=== PATIENT | female | born 1945 | race Caucasian/White ===

== ENCOUNTER 2018-06-04 12:17 | Inpatient (IN) | payer OTHER ==
[~2018-06-04] VITALS: Ht 162.6 cm; Wt 101.6 kg
[~2018-06-04 12:17] MED LIST: ADVAIR HFA115 MCG/21 INH; AMBIEN 5 MG TABL5 M1 PO; ASPIR 8181 M1 PO; ATORVASTATIN CA40 MG PO; BACTRIM DS TAB1 EACH PO; CEFTIN 250 MG250 MG PO; CHOLESTEROL MED PO; CYMBALTA60 MG PO; HUMALOG100 UNIT/1 SUBQ; JARDIANCE10 MG PO; KEFLEX500 MG PO; KETOCONAZOLE120 ML TOP; KETOCONAZOLE60 GM TOP; LEVEMIR SUBQ; LISINOPRIL10 MG PO; LOVASTAT40 PO; METFORMIN HCL500 MG PO; MINOCIN100 MG PO; POTASSIUM20 PO; PROAIR HFA8.5 GM INH; SYNTHROID150 MCG PO; TRAZODONE HCL50 MG PO; TRULICITY0.75 MG/0. SQ; UNICOMPLEX M TA1 TA1 PO; VICTOZA0.6 MG/0.1 SUBQ; ZESTORETIC 20-1 EAC3 PO
[2018-06-04 12:26] VITALS: BP 127/73
[2018-06-04 13:04] LABS: ABSOLUTE BASOPHILS 0.1 thou/uL (0.0-0.2); ABSOLUTE EOSINOPHILS 0.1 thou/uL (0.0-0.7); ABSOLUTE LYMPHOCYTES 1.5 thou/uL (0.8-5.3); ABSOLUTE MONOCYTES 0.5 thou/uL (0.0-1.2); ABSOLUTE NEUTROPHILS 5.6 thou/uL (1.6-8.1); BASOPHILS 1.3 %; EOSINOPHILS 1.5 %; HEMATOCRIT 45.7 % (37.0-47.0); HEMOGLOBIN 14.8 gm/dL (12.0-15.0); LYMPHOCYTES 19.6 %; MCHC 32.4 g/dL (28.0-37.0); MCV 86.6 fL (80.0-100.0); MONOCYTES 6.6 %; MPV 8.5 fl. (7.2-11.1); NUCLEATED RBCS 0 /100WBC; PLATELET COUNT* 239 thou/uL (150-400); RBC 5.28 mil/uL (4.20-5.00); WBC 7.9 thou/uL (4.0-11.0)
[2018-06-04 13:08] LABS: BE -0.3 mmol/L (-2 to +3); HCO3 27.3 mmol/L (22.0-26.0); PO2 78.6 mmHg (75.0-100.0); pH 7.303 (7.340-7.450)
[2018-06-04 13:09] LABS: PCO2 56.4 mmHg (35.0-45.0)
[2018-06-04 13:13] LABS: APTT 22.4 Seconds (25.0-31.3); PROTIME 10.2 Seconds (9.20-11.50)
[2018-06-04 13:17] LABS: ANION GAP 4 mmol/L (7-16); BUN 15 mg/dL (7-18); CALCIUM 8.4 mg/dL (8.5-10.1); CHLORIDE 105 mmol/L (98-107); CO2 32 mmol/L (21-32); CREATININE 0.8 mg/dL (0.6-1.3); GLUCOSE 389 mg/dL (70-99); POTASSIUM 3.7 mmol/L (3.5-5.1); SODIUM 141 mmol/L (136-145)
[2018-06-04 13:24] LABS: ALBUMIN 3.4 g/dL (3.4-5.0); ALKALINE PHOSPHATASE 94 U/L (46-116); NT-PRO BRAIN NAT PEPTIDE 130 pg/mL (<300); SGOT 27 U/L (15-37); SGPT 43 U/L (30-65); TOTAL BILIRUBIN 0.4 mg/dL (<0.1-1.0); TOTAL PROTEIN 7.1 g/dL (6.4-8.2); TROPONIN-I LEVEL <0.06 ng/mL (<0.06)
[2018-06-04] MEDS ORDERED: TRULICITY0.75 MG/0. SUBQ (14:08)
[2018-06-04] MEDS ORDERED: ALLEGRA ALLERG180 MG PO (14:08)
[2018-06-04 16:23] VITALS: BP 204/84
--- NOTE | 2018-06-04 16:26 | EKG ---
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1945 Requested By: Christiano Lowe Order Number: [id number] MD: Jak Pierson Measurements Intervals [place] Rate: 115 P: 72 WI: 151 QRS: 76 QRSD: 101 T: 3 QT: 353 QTc: 489 Interpretive Statements Sinus tachycardia Probable left atrial enlargement Anterior infarct, old, possible Baseline wander in lead(s) V1,V2 No previous ECG available for comparison Electronically Signed On 06-04-2018 16:26:04 PHYSICAL SCIENCES INSTRUCTOR by Jak Pierson [email or web address] <ELECTRONICALLY SIGNED> By: Jak Pierson MD, FACC 06/04/18 1626 [id number] Jak Pierson MD, FAC /EPI
[2018-06-04 17:00] VITALS: BP 147/110
[2018-06-04 18:12] LABS: CHOLESTEROL 226 mg/dL (<200); HDL CHOLESTEROL 39 mg/dL (>40); LDL CHOLESTEROL 156 mg/dL (<100); TC:HDL 5.8 Ratio (Not establshd); TRIGLYCERIDE 159 mg/dL (<150); VLDL 32 mg/dL (<40)
[2018-06-04 18:13] LABS: SERUM ASSESSMENT Clear
--- NOTE | 2018-06-04 18:50 | NUR ---
NESTOR RESTIN GIN BED. UTILIZING 4L PER NASAL CANULA FOR SUPPLEMENTAL OXYGEN. LUNG SOUNDS DIMINISHED AND WHEEZING. AOX4 AND CALM. SMALL FUNGAL RASH BEHIND RIGHT EAR. HOURLY ROUNDING COMPLETD FOR PATINET SAFETY
[2018-06-04 20:00] VITALS: BP 121/61
[2018-06-04 23:43] VITALS: BP 116/59
--- NOTE | 2018-06-05 03:12 | NUR ---
PT ALERT ORIENTED X 4. UP TO BSC WITH ONE PERSON ASSIST. OVER NOC OX IN PROGRESS. PT STATED SHE FELT MUCH BETTER THAN BEFORE SHE CAME IN. O2 AT [address] LIT[address] NC[address] TELEMETRY SHOWS ST. DENIES PAIN. WELL CONTINUE TO MONITOR.
[2018-06-05 05:30] VITALS: BP 137/57
[2018-06-05 05:47] LABS: BE 1.9 mmol/L (-2 to +3); HCO3 33.1 mmol/L (22.0-26.0); PO2 85.5 mmHg (75.0-100.0)
[2018-06-05 05:56] LABS: pH 7.201 (7.340-7.450)
[2018-06-05 05:57] LABS: PCO2 86.4 mmHg (35.0-45.0)
--- NOTE | 2018-06-05 06:21 | NUR ---
PTS ABGS AFTER OVERNIGHT OX CRITICAL. DR QUIROZ NOTIFIED. BIPAP ORDERED. PT REFUSED. PT ALERT AND ORIENTED. DR QUIROZ NOTIFIED OF PT REFUSAL TO WEAR BIPAP.
--- NOTE | 2018-06-05 07:20 | NUR ---
CHANGE OF SHIFT BEDSIDE REPORT GIVEN PATIENT SEEN AT BEDSIDE, IN BED RESTING ASSUMED PATIENT CARE
[2018-06-05 08:00] VITALS: BP 115/66
[2018-06-05 11:19] VITALS: BP 122/57
--- NOTE | 2018-06-05 11:35 | NUR ---
ELLIOTT ECHEVARRIA REQUESTING P.T. EVALUATION TO BE ON HOLD FOR TODAY 06/05/18 D/T PT. BEING ON BIPAP. WILL CHECK BACK FOR COMPLETION OF P.T. EVALUATION TOMORROW 06/06/18 PENDING PT. TOLERANCE AND WHETHER OR NOT SHE IS APPROPRIATE.
--- NOTE | 2018-06-05 11:50 | NUR ---
ATTEMPTED TO MEET WITH PT, PER ELLIOTT ECHEVARRIA PT IS ON BIPAP AND NEEDING TO REST. NO FAMILY IN ROOM. WILL TRY TO SEE LATER
[2018-06-05 12:22] LABS: BE 0.9 mmol/L (-2 to +3); HCO3 30.1 mmol/L (22.0-26.0); PO2 110.7 mmHg (75.0-100.0)
[2018-06-05 12:28] LABS: PCO2 68.8 mmHg (35.0-45.0); pH 7.259 (7.340-7.450)
--- NOTE | 2018-06-05 13:05 | 2DMMODE ---
[place] [address] 2 D/M-MODE ECHOCARDIOGRAM Name: BRYAN LONDONO Room: [address] IN [facility]#: [id number] Admission: 06/04/18 Attend Phys: Mickey Chino Discharge: Date of : 49 Date of Service: 06/05/18 1304 Report #: [id number] THIS REPORT FOR: //name// APPROVED REPORT Study performed: 06/05/2018 11:48:04 EXAM: Comprehensive 2D, Doppler, and color-flow Echocardiogram Patient Location: In-Patient Room #: [facility] Status: routine BSA: 1.98 HR: 107 bpm BP: 137/57 mmHg Other Information Study Quality: Technically Difficult Indications Dyspnea 2D Dimensions IVSd: 12.90 (7-11mm) LVOT Diam: 20.00 (18-24mm) LVDd: 36.92 mm PWd: 10.39 (7-11mm) Ascending Ao: 24.22 (22-36mm) LVDs: 23.50 (25-40mm) Aortic Root: 21.19 mm Volumes Left Atrial Volume (Systole) LA ESV Index: 12.10 mL/m2 Aortic Valve AoV Peak Terence.: 0.78 m/s AO Peak Gr.: 2.45 mmHg LVOT Max P.33 mmHg AO Mean Gr.: 1.56 mmHg LVOT Mean P.77 mmHg LVOT Max V: 0.58 m/s AO V2 VTI: 16.49 cm LVOT Mean V: 0.40 m/s HUDSON (VTI): 2.06 cm2 LVOT V1 VTI: 10.82 cm TDI Medial E' Terence.: 0.16 m/s Lateral E' Terence.: 0.10 m/[place] [address] 2 D/M-MODE ECHOCARDIOGRAM Name: BRYAN LONDONO Room: [address] IN .R.#: [id number] Admission: 06/04/18 Attend Phys: Mickey Chino Discharge: Date of : 49 Date of Service: 06/05/18 1304 Report #: [id number] PV Peak Terence.: 0.93 m/s PV Peak Gr.: 3.45 mmHg Left Ventricle The left ventricle is normal size. There is normal LV segmental wall motion. There is normal left ventricular wall thickness. Left ventricular systolic function is normal. The left ventricular ejection fraction is within the normal range. LVEF is 60-65%. The left ventricular diastolic function is normal. Right Ventricle The right ventricle is normal size. The right ventricular systolic function is normal. Atria The left atrium size is normal. The right atrium size is normal. Aortic Valve The aortic valve is normal in structure. No aortic regurgitation is present. There is no aortic valvular stenosis. Mitral Valve The mitral valve is normal in structure. There is no mitral valve regurgitation noted. No evidence of mitral valve stenosis. Tricuspid Valve The tricuspid valve is normal in structure. There is no tricuspid valve regurgitation noted. Pulmonic Valve The pulmonary valve is normal in structure. There is no pulmonic valvular regurgitation. Great Vessels The aortic root is normal in size. IVC is normal in size and collapses >50% with inspiration. Pericardium There is no pericardial effusion. <Conclusion> The left ventricle is normal size. There is normal left ventricular wall thickness. Left ventricular systolic function is normal. The left ventricular ejection fraction [place] [address] 2 D/M-MODE ECHOCARDIOGRAM Name: BRYAN LONDONO Room: [address]#: [id number] Admission: 06/04/18 Attend Phys: Mickey Chino Discharge: Date of : 49 Date of Service: 06/05/18 1304 Report #: [id number] LVEF is 60-65%. The right ventricle is normal size. The left atrium size is normal. The aortic valve is normal in structure. The mitral valve is normal in structure. The tricuspid valve is normal in structure. IVC is normal in size and collapses >50% with inspiration. There is no pericardial effusion. There is normal LV segmental wall motion. <ELECTRONICALLY SIGNED> By: Dimitry Norris MD, FACC 06/05/18 1304 03 Dimitry Norris MD, FACC /INF
--- NOTE | 2018-06-05 14:59 | NUR ---
MET WITH PT TO DISCUSS HOME SITUATION/DC PLANNING. PT LIVES ALONE, DTR JEREMY IS SUPPORTIVE AND ASSISTS HER NEEDED. PT USES NO EQUIPMENT, HAS HAD O2 IN THE PAST. SHE HAS HAD HH IN THE PAST ALSO. PT HAS 6 CHILDREN. SHE PLANS TO RETURN HOME AT DC, AWARE THAT SHE MAY NEED EQUIPMENT AT DC, WILL FOLLOW
[2018-06-05 16:04] VITALS: BP 111/42
[2018-06-05 19:15] VITALS: BP 98/51
[2018-06-05 20:51] VITALS: BP 105/49
--- NOTE | 2018-06-05 22:35 | NUR ---
ASSESSMENT COMPLETE. PT A&O AND ABLE TO VOICE ALL NEEDS. PT DENIES ANY PAIN, N/V/D AT TIME OF ASSESSMENT AND AT THIS TIME. PT IS CURRENTLY ON BIPAP TOLERATING WELL. TRACING ST ON TELEMETRY. PT DENIES ANY FIRTHER NEEDS AT THIS TIME. CLWR.
[2018-06-06] VITALS: BP 106/41
[2018-06-06 04:00] VITALS: BP 111/49
--- NOTE | 2018-06-06 04:00 | NUR ---
PT IS REFUSING TO KEEP BIPAP ON AT THIS TIME. PT STATES THAT SHE "JUST CANT DO IT ANYMORE TONIGHT. PT EDUCATED ON THE NEED FOR BIPAP BUT REFUSES TO KEEP IT ON. RT NOTIFIED. NASAL CANNULA PUT ON PT
--- NOTE | 2018-06-06 06:29 | NUR ---
PT HAS SLEPT OFF AND ON T/O THIS SHIFT, REMOVING BIPAP AT 0400. RT UNABLE TO OBTAIN ABG, VGB OBTAINES INSTEAD. RESULTS CALLED TO PHYSICIAN, NNO. LAB UNABLE TO OBTAIN BLOOD DRAW.
--- NOTE | 2018-06-06 07:20 | NUR ---
CHANGE OF SHIFT BEDSIDE REPORT GIVEN PATIENT SEEN IN BED ASLEEP ASSUMED PATIENT CARE
[2018-06-06 07:45] VITALS: BP 108/56
[2018-06-06 08:19] LABS: PO2 83.8 mmHg (75.0-100.0); pH 7.328 (7.340-7.450)
[2018-06-06 08:22] LABS: PCO2 62.3 mmHg (35.0-45.0)
[2018-06-06 09:58] LABS: HEMATOCRIT 44.9 % (37.0-47.0); HEMOGLOBIN 14.4 gm/dL (12.0-15.0); MCH 27.9 pg (26.0-34.0); MCHC 32.1 g/dL (28.0-37.0); MPV 8.9 fl. (7.2-11.1); RBC 5.16 mil/uL (4.20-5.00); RDW-CV 15.2 % (10.5-14.5); WBC 11.2 thou/uL (4.0-11.0)
[2018-06-06 10:47] LABS: CALCIUM 8.9 mg/dL (8.5-10.1); CREATININE 0.6 mg/dL (0.6-1.3); MAGNESIUM 2.5 mg/dL (1.8-2.4); POTASSIUM 5.1 mmol/L (3.5-5.1)
[2018-06-06 11:37] VITALS: BP 121/45
--- NOTE | 2018-06-06 12:03 | CON ---
[address] [address] CONSULTATION Name: BRYAN LONDONO Room: [address] IN .R.#: [id number] Admission: 06/04/18 Attend Phys: Alex Ireland Discharge: Date of : 49 Report #: [id number] THIS REPORT FOR: //name// CC: MARC Chino Physician staff DATE OF SERVICE: 06/05/2018 REFERRING PHYSICIAN: Mickey Chino MD REASON FOR CONSULTATION: Respiratory failure, COPD, hypercapnia and hypoxia. HISTORY OF PRESENT ILLNESS: The patient is a pleasant 73-year-old woman with past medical history of hypertension, depression, diabetes who presented with progressive shortness of breath for 1 month. She has been complaining of shortness of breath on minimal exertion for 1 month, any activity the patient gets short of breath. This was associated with cough productive of greenish mucus. She denies any history of fever, chills or chest pain. She has history of lower extremity swelling and orthopnea. She says she cannot lay flat, she gets very short of breath when lying flat. The patient states that she is using albuterol inhaler. She is not aware if she has COPD; however, states after she had previous admission 6 years ago for what she describes as intestinal perforation, at that time she required oxygen and she was on oxygen for a few years after discharge 6 years ago. She is using albuterol with improvement. She has intermittent wheezing. The patient follows with a nurse practitioner. She was scheduled to follow with primary physician. She is known to have hypothyroidism, she states that her hypothyroidism has not been well controlled. REVIEW OF SYSTEMS: GENERAL: The patient has history of fatigue. Denies fever or chills. EYES: No visual changes. HENT: Has nasal congestion, rhinitis, improved with what she describes as allergy medication. CARDIOVASCULAR: No chest pain. Has lower extremity swelling. GASTROINTESTINAL: No nausea or vomiting. Previous history of what she described intestinal perforation. GENITOURINARY: Unremarkable. MUSCULOSKELETAL: Unremarkable. ENDOCRINE: Has history of hypothyroidism. She states it has not been well controlled, has fatigue. PSYCHIATRIC: Has depression. HEMATOLOGY: [place] [address] CONSULTATION Name: BRYAN LONDONO Room: [address] IN [facility]#: [id number] Admission: 06/04/18 Attend Phys: Alex Ireland Discharge: Date of : 49 Report #: [id number] SKIN: No changes. NEUROLOGIC: No numbness or weakness. IMMUNOLOGY: Has history of allergic rhinitis as above. SLEEP: Describes history of daytime fatigue, insomnia. She usually sleeps around 3 hours, feeling sleepy all the time. Not aware of snoring; however, she lives by herself. PAST MEDICAL HISTORY: Diabetes, ruptured colon in the past, hypothyroid, history of COPD, previous history of diastolic heart failure. ALLERGIES: CODEINE AND MORPHINE. PAST SURGICAL HISTORY: Ruptured colon, hysterectomy, cholecystectomy, gastric bypass. MEDICATIONS: Outpatient medications reviewed, on trazodone and she is on Advair 115/21. She is on Levoxyl, albuterol. She is on Angela, multivitamins. Her medications were reviewed. She is on Rocephin. She is on Levoxyl. She is on alprazolam, methylprednisolone 62.5 every 8 hours. She is on trazodone. She is on Pulmicort, DuoNeb every 4 hours. SOCIAL HISTORY: She is an ex-smoker, she quit smoking in 1990. She smoked for 15 years up to 3 pack or up to 40-pack smoking and denies alcohol abuse. No alcohol abuse, no tobacco abuse at this time. FAMILY HISTORY: Diabetes in her mom and heart disease. PHYSICAL EXAMINATION: GENERAL: The patient is pleasant, looks fatigued, tired. She is not in respiratory distress though. VITAL SIGNS: Afebrile, temperature is 36. Heart rate is 101, respiratory rate 20, blood pressure 137/57, was hypertensive overnight, O2 she is on nasal cannula 3 liters. Highest blood pressure was 204/84. O2 saturation was 91% on 3 liters. HEAD AND NECK: Neck is supple. She has increased neck circumference. No lymph node enlargement. Mucous membranes are moist. She has Mallampati score of 4. Eyes nonicteric. CHEST: She has equal breath sounds, scattered expiratory wheezing both lung, but good air movement. CARDIOVASCULAR: Regular rhythm, normal S1, S2. No murmur. ABDOMEN: Obese, nontender, soft, no organomegaly. EXTREMITIES: She has +3 edema. MUSCULOSKELETAL: No changes. NEUROLOGIC: No focal deficit; however, she is sleepy, but appropriate. PSYCHOLOGICAL: Looks depressed. [address] [address] CONSULTATION Name: BRYAN LONDONO Room: [address] IN [facility]#: [id number] Admission: 06/04/18 Attend Phys: Alex Ireland Discharge: Date of : 49 Report #: [id number] LABORATORY DATA AND OTHER DATABASE: Her arterial blood gas unfortunately is worse today. Initially on admission yesterday pH 7.3, pCO2 of 56, pO2 was 78, this was on nasal cannula. Today, repeat blood gas 7.2, pCO2 is 86, pO2 is 85. Her carbon dioxide is 32. CBC: White blood cell count 7.9, hemoglobin 14.8, platelets 239. IMAGING: Imaging reviewed. She had a chest CT done yesterday, which I reviewed, showed scattered bilateral ground-glass densities. There are subcentimetric nodules as well. The nodules as noted measured 10 x 5 mm in the right mid lung and right lower lobe 5 mm per Radiology. On the left side, there is a nodular density in the left mid lung measuring 9.5 mm. Also, as above, scattered ground-glass. There is posterior left upper lobe 8 x 5 mm too. Again, this CT reviewed. ASSESSMENT AND PLAN: Acute hypercapnic and hypoxemic respiratory failure. The patient has history suggestive of chronic obstructive pulmonary disease. At this time, she is in exacerbation. She has acute hypercapnic and hypoxemic respiratory failure. Arterial blood gas is worse. We will recommend to start BiPAP during the daytime and to obtain a blood gas in 1 hour. This was discussed with the patient who agrees. She has chronic obstructive pulmonary disease exacerbation, agree with treatment with steroids and antibiotic with Rocephin. We will add azithromycin for atypical coverage as well. We will reevaluate tomorrow, if she improves, may start decreasing steroids. Acute respiratory failure. The patient came in with high blood pressure. She has orthopnea, lower extremity swelling, suspect diastolic heart failure. Agree with obtaining echo. Recommend diuresis. Obtain chest x-ray in the morning and treatment for pulmonary edema as above. Optimize blood pressure control and BiPAP. Her current BiPAP setting is 10/5 with 35% FiO2 with backup rate. Questionable obstructive sleep apnea, history of sleepiness, history of hypothyroidism, likely exacerbating her symptoms of sleep apnea. Recommend to optimize hypothyroidism treatment, which likely will exacerbate hypercapnia as well, as well as obstructive sleep apnea and obesity hypoventilation. Highly recommended for patient to follow up with Sleep Medicine and Pulmonary as outpatient; provided her with our contact information. Pulmonary nodules with previous history of smoking. Further evaluation as outpatient will include PET scan as well as serial CT if PET scan is negative. This was discussed with the patient. Recommend again as above to follow up with Pulmonary and if the PET scan is positive, will need further evaluation for this to exclude malignancy. This was discussed with the patient and the patient [place] [address] CONSULTATION Name: SPRINGBRYAN S Room: [address] IN [facility]#: [id number] Admission: 06/04/18 Attend Phys: Alex Ireland Discharge: Date of : 49 Report #: [id number] We will continue to follow up on the patient with you. Thank you for allowing me to participate in the care of this patient. <ELECTRONICALLY SIGNED> By: Debo Mendez MD 06/06/18 1203 [id number] Jose Angel Alatorre MD /jennifer
--- NOTE | 2018-06-06 13:38 | NUR ---
Consult for Trilogy received, faxed referral to Araceli at [facility]. to have order signed tomorrow and will fax back to Araceli. Following.
[2018-06-06 15:59] VITALS: BP 123/63
[2018-06-06 20:00] VITALS: BP 105/46
[2018-06-07] VITALS: BP 129/57
--- NOTE | 2018-06-07 03:06 | NUR ---
RECIEVED REPORT AND ASSUMED CARE AT 1900. BP LOW, PULSE TACHYCARDIA, OTHER THAN THAT VITALS STABLE. PT UP WITH ASSIST X 1 STAND BY. ASSESSMENT COMPLETED AND DISCUSSED PLAN OF CARE AND PT UNDERSTANDS. ON 4L NC OXYGEN AND BIPAP AT NIGHT. PT DENIED ANY PAIN AT THIS TIME. BED LOCKED AND CALL LIGHT WITHIN REACH. HOURLY ROUNDING DONE AND ALL NEEDS MET. NURSING WILL CONTINUE TO MONITOR.
[2018-06-07 04:00] VITALS: BP 123/78
[2018-06-07 08:00] VITALS: BP 141/63
[2018-06-07 09:04] LABS: BE 2.9 mmol/L (-2 to +3); HCO3 29.3 mmol/L (22.0-26.0); PO2 95.3 mmHg (75.0-100.0); pH 7.369 (7.340-7.450)
--- NOTE | 2018-06-07 09:32 | NUR ---
ASSUMED CARE OF PT AT 0730. PT RESTING IN BED. PT A&0X4, DENIES ANY PAIN OR SHORTNESS OF BREATH AT THIS TIME. PT DAUGHTER AT BEDSIDE WITH LOTS OF QUESTIONS, PT DAUGHTER UPDATED ON CURRENT PLAN OF CARE. PT NPO FOR STRESS TEST. STRESS TEST IS PLANNED FOR 1030. 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 EDEMA NOTED. PT ON 4L NC SAT 96%. PT UP WITH 1 ASSIST TO BATHROOM. PT GOAL FOR TODAY IS STRESS TEST THIS MORNING, TITRATE OXYGEN, MONITOR ABG'S, WORK WITH PHYSICAL AND OCCUPATIONAL THERAPY AND INCREASE ACTIVITY. AM ASSESSMENT CHARTED. MEDICATIONS PER SEP. PT REPOSITIONED EVERY 2 HOURS FOR COMFORT. HOURLY ROUNDING OBSERVED. BED IN LOW POSITION. CALL LIGHT WITHIN REACH. WILL CONTINUE PLAN OF CARE.
--- NOTE | 2018-06-07 10:21 | NUR ---
CM had a long discussion with Pt and dtr regarding disposition. CM discussed skilled at dc, Pt will consider and dtr plans to go and tour [facility] today. Spoke with Lakesha at [facility], they accept Pt's insurance and will have bed availability early next week, but they do not accept trilogies, Pt may have to dc with a bipap and have the trilogy arranged post SNF stay. DC planner intern to fax initial referral. CM provided Pt/dtr with [facility] info and discussed HH options. Pt may need home o2, Pt stated that she had home o2 approx 7 years ago. Following.
--- NOTE | 2018-06-07 10:37 | NUR ---
INSURANCE CHECKER FAXED SKILLED REFERRAL TO [facility] INCLUDING PATIENT'S FACESHEET, H&P, VITALS, PT/OT NOTES, AND MED LIST FOR PATIENT. CM WILL REMAIN AVAILABLE TO ASSIST AND FOLLOW NEEDED.
[2018-06-07 12:26] VITALS: BP 96/45
[2018-06-07 16:05] VITALS: BP 119/56
--- NOTE | 2018-06-07 16:54 | CARDNUC ---
[place] [address] CARDIAC NUCLEAR IMAGING REPORT Name: SPRINGBRYAN Gage Room: [address] IN [facility]#: [id number] Admission: 06/04/18 Attend Phys: Mickey Chino Discharge: Date of : 49 Date of Service: 06/07/18 1654 Report #: [id number] THIS REPORT FOR: //name// APPROVED REPORT Imaging Protocol: Stress Tc-99m/Rest Tc-99m 2 days Study performed: 06/07/2018 08:25:00 Indication: dyspnea Patient Location: In-Patient Room #: 224 Stress Tech: Juliana Castillo Stress Nurse: Donna Contreras RN NM Tech:MARLI Morgan Ht: 5 ft 4 in Wt: 221 lbs BSA: 2.04 m2 BMI: 37.93 Medical History Medical History: chf, copd, hypertension, diabetes Medications: aspirin 81, atorvastatin, lisinopril Allergies: morphin, codeine Cardiac Risk Factors: age, hypertension, diabetes Previous Cardiac Procedures: none Exercise History: Sedentary Pharmacologic Stress Pharmacologic stress test was performed by injecting Regadenoson 0.4 mg IV push over 10-15 seconds immediately followed by the intravenous injection of 37.7 mCi of Tc-99m Sestamibi. Time of stress injection: 1050 Date: 06/07/2018 Time of stress imagin Administration Route: IV Gated Stress SPECT was performed 40 minutes after stress injection. The images were gated to evaluate regional wall motion and calculate left ventricular ejection fraction. Stress only was performed in the Supine position. Stress Test Details Stress Test: Pharmacologic stress testing performed using 0.4 mg of regadenoson per 5 mL given IV over 10 seconds. Reason for pharmacologic stress test: physical limitation. HR Max Heart Rate (APMHR): 149 [place] [address] CARDIAC NUCLEAR IMAGING REPORT Name: BRYAN LONDONO Room: [address]#: [id number] Admission: 06/04/18 Attend Phys: Mickey Chino Discharge: Date of : 49 Date of Service: 06/07/18 1654 Report #: [id number] Resting HR: 88 bpm Target HR (85% APMHR): 126 bpm Max HR Achieved: 109 bpm % of APMHR: 73 Recovery HR: 107 bpm HR response to stress: Normal HR response to stress BP Resting BP: 120/76 mmHg Max BP: 125/64 mmHg Recovery BP: 114/68 mmHg BP response to stress: Normal blood pressure response to stress. ECG Resting ECG: Sinus Rhythm Stress ECG: Sinus Rhythm ST Change: None Recovery ECG: Sinus Rhythm Recovery ST Change: None Clinical Reason for Termination: Completed protocol Stress Symptoms: None Exercise duration: 0 min sec Exercise capacity: 1 METs Nurse Comments pt unable to walk on treadmil due to eneralized weakness. Stress ECG Conclusion negative ECG portion Study Quality Study: Good Artifact: No artifact Study Data Post stress, the left ventricular ejection was 79%.. Perfusion Stress only SPECT images are normal in supine and prone positions, without any perfusion defects. Wall [place] [address] CARDIAC NUCLEAR IMAGING REPORT Name: BRYAN LONDONO Room: [address] IN [facility]#: [id number] Admission: 06/04/18 Attend Phys: Mickey Chino Discharge: Date of : 49 Date of Service: 06/07/181653 Report #: [id number] Nuclear Conclusion ECG Findings: negative for ischemia Clinical Findings: negative for ischemia Nuclear Findings: negative for ischemia Exercise Capacity: normal Left Ventricular Function: normal Risk Study: low Negative perfusion nuclear stress test for ischemia/infarct. <Conclusion> negative ECG portion <ELECTRONICALLY SIGNED> By: Toney Georges MD, [facility] 06/07/181653 53 1654 Toney Georges MD, FACC /INF
[2018-06-07 19:40] VITALS: BP 131/65
[2018-06-08] VITALS: BP 130/54
--- NOTE | 2018-06-08 03:45 | NUR ---
RECIEVED REPORT AND ASSUMED CARE AT 1900. PULSE TACHY OTHER THAN THAT VITALS STABLE. PT UP WITH STANDBY ASSIST. ON 4L NC AND BIPAP AT HS. ASSESSMENT COMPLETED AND DISCUSSED PLAN OF CARE AND PT UNDERSTANDS. PT DENIES ANY PAIN AT THIS TIME. BED LOCKED AND CALL LIGHT WIHIN REACH. HOURLY ROUNDING DONE, AND ALL NEEDS MET. NURSING WILL CONTINUE TO MONITOR.
[2018-06-08 04:00] VITALS: BP 108/64
[2018-06-08 08:00] VITALS: BP 132/62
--- NOTE | 2018-06-08 08:00 | NUR ---
PT RESTING IN BED, APPEARS ALERT O X 4, DENIES CHEST PAIN, DENIES SOB AT REST, O2 AT 4L PER NA, SATS 96%, WEARS BIPAP AT HS, DR PATEL WITH PULMONARY HERE ROUNDING
--- NOTE | 2018-06-08 09:44 | NUR ---
CM faxed signed trilogy order and updated progress note to Araceli at [facility]. Plan is for Pt to dc to skilled at [facility] pending insurance auth. If insurance denies, plan is home with HH and trilogy.
[2018-06-08 12:00] VITALS: BP 147/76
--- NOTE | 2018-06-08 14:32 | NUR ---
Pt completed a DPOA today appointing her daughter, Becca. Copy placed on Pt's chart
[2018-06-08 16:00] VITALS: BP 103/52
--- NOTE | 2018-06-08 17:49 | NUR ---
pt up in chair today for each meal, able to ambulate with BRP, remains o x 4, denies chest pain, denies SOB at rest, on O2 at 4l per NC, BIPAP at HS. ABX switched to po, cont on IV steroids , decreased today. Accus checks , sliding scale insulin, Lantus at HS, Blood sugars trending down as steroids tapered . PIV L ac appears patent
[2018-06-08 19:40] VITALS: BP 129/61
[2018-06-09] VITALS: BP 113/71
--- NOTE | 2018-06-09 02:36 | NUR ---
RECIEVED REPORT AND ASSUMED CARE AT 1900. VITAL SIGNS STABLE. PT UP WITH STANDBY ASSIST. ASSESSMENT COMPLETED AND DISCUSSED PLAN OF CARE AND PT UNDEDERSTANDS. PT DENIES ANY PAIN. ON 2L NC OXYGEN AND BIPAP AT HS. BED LOCKED, AND CALL LIGHT WITHIN REACH. HOURLY ROUNDING DONE AND ALL NEEDS MET. NURSING WILL CONTINUE TO MONITOR.
[2018-06-09 04:00] VITALS: BP 124/72
[2018-06-09 08:00] VITALS: BP 100/49
[2018-06-09 12:00] VITALS: BP 107/60
[2018-06-09 16:00] VITALS: BP 126/60
--- NOTE | 2018-06-09 18:49 | NUR ---
NESTOR RESTING IN BED IN ROOM. DAUGHTER AT BEDSIDE. PATIENT UTILIZING 2L PER NASAL CANULA TO MAINTAIN O2 SATURATION. PATIENT WAS TRIALED WITHOUT SUPPLEMENTAL OXYGEN. HOURY ROUNDING COMPLETD FOR PATIENT SAFETY. PATIENT DAUGHTER EXPRESSED CONCERNS THAT HER MOTHER WOULD BE DISCHARGED TOO SOON AND WOULD LIKELY RETURN TO THE HOSPITAL, PRIMARY DOCTOR NOTIFIED.
[2018-06-09 20:00] VITALS: BP 124/54
[2018-06-10 00:09] VITALS: BP 136/97
--- NOTE | 2018-06-10 03:55 | NUR ---
PT ALERT ORIENTED. BREATH SOUNDS DIMINISHED BUT OTHERWISE CLEAR. O2 AT 4 LITERS NC. ATIVAN GIVEN AT 0100 AND PT WENT ON BIPAP AT THAT TIME. TELEMETRY SHOWS SR. UP WITH STAND BY ASSIST. WILL CONTINUE TO MONITOR.
[2018-06-10 04:00] VITALS: BP 133/76
[2018-06-10 07:59] VITALS: BP 112/54
--- NOTE | 2018-06-10 08:00 | NUR ---
RECIEVED REPORT. ASSUMED CARE OF PT AT 0730. VSS. CARDIAC MONTIORING IN PLACE SR. AM ASSESSMENT AND VITALS COMPLETED CHARTED. PT ALERT AND ORIENTED. PT ON 2L PER NC. PT DENIES ANY SOA THIS AM. PT DOES REPORT OCCASSIONAL EXERTIONAL SOA. PT IS UP WITH STAND BY ASSISTANCE. IV SALINE LOCKED. LIMB ALERT ON LEFT ARM FOR HISTORY OF INFILTRATED IV SITE. PT'S DAUGHTER AT BEDSIDE THIS AM. DISCUSSED PLAN OF CARE AND DISCHARGE PLANNING. PT'S DAUGHTER DOES NOT WANT PT TO DISCHARGE TODAY BECAUSE SHE DOES NOT THINK PT IS READY. INFORMED DTR THAT DR WOULD BE ROUNDING THIS AM AND WILL DISCUSS PLANS FURTHER WITH HER. CALL LIGHT IS WITHIN REAH. PT DENIES ANY PAIN OR DISCOMFORT. WILL CONTINUE TO MONTIOR FOR DURATION OF SHIFT.
[2018-06-10] MEDS ORDERED: CEFDINIR300 MG PO (09:12)
[2018-06-10] MEDS ORDERED: AZITHROMYCIN 2250 MG PO (09:12)
[2018-06-10] MEDS ORDERED: LASIX 20 MG TAB20 MG PO (09:17)
[2018-06-10] MEDS ORDERED: ADULT LOW DOSE81 MG PO (09:17)
[2018-06-10] MEDS ORDERED: HUMALOG100 UNIT/1 SUBQ (09:17)
[2018-06-10] MEDS ORDERED: PRINIVIL5 MG PO (09:17)
[2018-06-10] MEDS ORDERED: IPRAT-ALBUT 0.5-3 ML INH (09:17)
[2018-06-10] MEDS ORDERED: PREDNISONE 20 M20 MG PO (09:17)
[2018-06-10] MEDS ORDERED: NEBULIZER MISCELL (09:25)
[2018-06-10 09:58] LABS: BE 2.4 mmol/L (-2 to +3); HCO3 29.2 mmol/L (22.0-26.0); PO2 84.5 mmHg (75.0-100.0); pH 7.355 (7.340-7.450)
--- NOTE | 2018-06-10 10:00 | NUR ---
CM faxed updated therapy notes to [facility], asked that they submit for insurance auth. Pt ready to dc once auth obtained. Following.
[2018-06-10 10:01] LABS: PCO2 53.5 mmHg (35.0-45.0)
[2018-06-10 12:21] VITALS: BP 126/59
--- NOTE | 2018-06-10 17:04 | NUR ---
VSS. CARDIAC MONITORING IN PLACE WITH NO CHANGES THIS SHIFT. PT REMAINS ALERT AND ORIETNED. PT REMAINS ON 2L PER NC. PT PROGRESSING TOWARDS GOALS. PT WALKED IN [place] WITH PHYSCIAL THERAPY THIS AFTERNOON. PENDING DISCHARGE INSURANCE AUTHORIZATION. PT INFORMED OF PLAN OF CARE. PT COMMUNICATES UNDERSTANDING. PT IS UP WITH STAND BY ASSISTANCE. CALL LIGHT IS WITHIN [facility]. WILL CONTINUE TO [facility] FOR [facility] OF [facility].
[2018-06-10 17:10] VITALS: BP 118/56
[2018-06-10 20:00] VITALS: BP 118/43
[2018-06-11 00:02] VITALS: BP 131/61
--- NOTE | 2018-06-11 02:17 | NUR ---
ASSUMED CARE OF PATIENT AT 1900. VSS, SLIGHT TEMP. RECHECKED AT MIDNIGHT, WITHIN NORMAL LIMITS. UP TO CHAIR UNTIL READY FOR BED. DENIES PAIN, SOA OR N/V. ANTICIPATING DC TOMORROW PENDING INSURANCE. CALLS OUT APPROPRIATELY. PROGRESSING TOWARDS POC GOALS.
[2018-06-11 04:00] VITALS: BP 130/70
--- NOTE | 2018-06-11 08:00 | NUR ---
RECEIVED REPORT. ASSUMED CARE OF PT AT 0730. VSS. CARDIAC MONITORING IN PLACE SR. AM ASSESSMENT AND VITALS COMPLETED CHARTED. PT ALERT AND ORIETNED. PT ON 2L PER NC WITH O2 SAT AT 95% PT SITTING UP IN CHAIR THIS AM FOR BREAKFAST. PT DENIES ANY PAIN OR DISCOFMORT. PT REPORTS READY FOR DISCHARGE. PT INFORMED OF PLAN OF CARE. CALL LIGHT IS WITHIN RE[facility]. WILL CONTINUE TO MONITOR FOR DURATION OF SHIFT.
[2018-06-11 08:07] VITALS: BP 101/56
[2018-06-11 11:33] VITALS: BP 112/61
--- NOTE | 2018-06-11 12:58 | NUR ---
Nutriotion: Pt assessed for LOS. H/o DM, HTN, COPD. Admitted with resp distress. CHO count diet. Eating BKFST this morning. Wt increasing since admit - 207 to 221#. BG 158, alb 3.4. Will disch to SNF. Discharge orders in.
[2018-06-11 15:00] VITALS: BP 110/53
--- NOTE | 2018-06-11 17:43 | NUR ---
VSS. CARDIAC MONTIORING IN PLACE WITH NO CHAGNES THIS SHIFT. PT PROGRESSING TOWARDS GOALS. PT REMAINS ON 2L PER NC. IV SALINE LOCKED. PT GIVEN ONETIME DOSE OF LASIX WITH GOOD URINE OUTPUT. PT IS UP AD ORESTES TO BATHROOM. PT WALKED IN [place] WITH THERAPY. PENDING DISCHARGE TO SNF INSURANCE AUTH. PT HAS HAD NO COMPLAINTS OF PAIN THIS SHIFT. EDEMA NOTED TO BILATERAL LE. WILL CONTINUE TO [facility].
[2018-06-11 19:37] VITALS: BP 110/53
[2018-06-12] VITALS: BP 123/54
--- NOTE | 2018-06-12 02:06 | NUR ---
ASSUMED CARE OF PATIENT AT 1900. VSS, AFEBRILE. RESTING COMFORTABLY IN BED. CALLS OUT APPROPRIATELY. WEARING BIPAP THROUGH THE NIGHT. WAITING ON INSURANCE AUTHORIZATION FOR DC. PROGRESSING TOWARDS POC GOALS.
[2018-06-12 04:00] VITALS: BP 120/70
[2018-06-12 08:15] VITALS: BP 106/48
--- NOTE | 2018-06-12 08:50 | NUR ---
CM updated Pt of dc and informed that [facility] will deliver Pt's home trilogy post dc from skilled.
--- NOTE | 2018-06-12 09:00 | NUR ---
HEALTH OFFICER INFORMED THAT PATIENT WOULD D/C TO [facility] TODAY AT 1200, AND [facility] WILL PROVIDE TRANSPORT. D/C LEAVE COORDINATOR FAXED PATIENT'S D/C ORDERS TO [facility]. D/C LEAVE COORDINATOR SPOKE TO THE PATIENT TO INFORM OF THIS. PATIENT IN AGREEMENT AND INFORMS THAT HER DTR WILL ARRIVE SOON SO THERE IS NO REASON TO CALL HER. D/C LEAVE COORDINATOR INFORMED THE RN IN-CHARGE OF THE PATIENT OF V ACCEPTANCE AND TIME OF TRANSPORT. TELECASTING ENGINEER INFORMED OF NEED TO COPY CHART. CM WILL REMAIN AVAILABLE TO ASSIST AND FOLLOW NEEDED.
[2018-06-12 10:44] VITALS: BP 106/48
[2018-06-12] MEDS ORDERED: HUMALOG100 UNIT/1 SUBQ (10:56)
[2018-06-12 11:54] VITALS: BP 91/51
--- NOTE | 2018-06-12 20:14 | NUR ---
I ASSUMED CARE OF THE PATIENT AT 0700 AND TRANSFERED HER TO A FACILITY AT 1310. PATIENT NEEDS WERE MET AND PAIN IS MANAGED WITH PRN MEDS. HOURLY ROUNDING WAS COMPLETED. AFTER 3 ATTEMPTS TO CALL REPORT TO [facility], KIRA WAS GIVEN REPORT. TRANSPORT WAS GIVEN PACKET. FOLLOWED UP WITH PATIENT AND [facility] CASE MANAGEMENT.
== END 2018-06-12 13:10 | DRG 291 ==
LOC: M.ERS 12:17 → M.2W 14:47 → M.TBA-ER 14:47 → M.2W 16:19
PROVIDERS: Family Medicine; Internal Medicine; Internal Medicine Pulmonary Disease; ADMIT Internal Medicine
PROC: 5A09357 Assistance with Respiratory Ventilation, Less than 24 Consecutive Hours, Continuous Positive Airway Pressure (ICD-10-PCS; principal; 2018-06-07)
PROC: 5A09357 Assistance with Respiratory Ventilation, Less than 24 Consecutive Hours, Continuous Positive Airway Pressure (ICD-10-PCS; 2018-06-08)
PROC: 5A09357 Assistance with Respiratory Ventilation, Less than 24 Consecutive Hours, Continuous Positive Airway Pressure (ICD-10-PCS; 2018-06-10)
PROC: 5A09357 Assistance with Respiratory Ventilation, Less than 24 Consecutive Hours, Continuous Positive Airway Pressure (ICD-10-PCS; 2018-06-11)
DX: I11.0 Hypertensive heart disease with heart failure (principal); J96.21 Acute and chronic respiratory failure with hypoxia; J96.22 Acute and chronic respiratory failure with hypercapnia; J44.1 Chronic obstructive pulmonary disease with (acute) exacerbation; E66.2 Morbid (severe) obesity with alveolar hypoventilation; I50.33 Acute on chronic diastolic (congestive) heart failure; F32.9 Major depressive disorder, single episode, unspecified; E03.9 Hypothyroidism, unspecified; R91.8 Other nonspecific abnormal finding of lung field; E11.65 Type 2 diabetes mellitus with hyperglycemia; Z68.38 Body mass index [BMI] 38.0-38.9, adult; Z90.49 Acquired absence of other specified parts of digestive tract; Z87.891 Personal history of nicotine dependence; Z90.710 Acquired absence of both cervix and uterus; Z98.84 Bariatric surgery status; Z79.51 Long term (current) use of inhaled steroids; Z79.4 Long term (current) use of insulin; Z79.899 Other long term (current) drug therapy; Z88.5 Allergy status to narcotic agent; Z82.49 Family history of ischemic heart disease and other diseases of the circulatory system; Z83.3 Family history of diabetes mellitus